=== PATIENT | female | born 1960 | race African-American/Black ===

== ENCOUNTER 2016-08-16 19:31 | Emergency (ER) | payer SELFPAY ==
[~2016-08-16] VITALS: Ht 152.4 cm; Wt 136.1 kg
[2016-08-16 19:53] VITALS: BP 195/106
[2016-08-16] MEDS ORDERED: FLUT9.9S NS (20:08)
[2016-08-16] MEDS ORDERED: SULF1TAB24 PO (20:08)
--- NOTE | 2016-08-16 20:08 | PHYS DOC ---
Past Medical History Past Medical History: No Pertinent History Past Surgical History: No Surgical History Additional Information: nonsmoker Alcohol Use: None Drug Use: None Adult General Chief Complaint Chief Complaint: Congestion HPI HPI Patient is a 55 year old female who presents with subjective fever and nasal congestion for 3 weeks. She reports frontal headache. She denies sore throat or cough. Upon arrival to the emergency department, her blood pressure is significantly elevated. She denies history of hypertension. She has been taking Benadryl and [id number] decongestants to help with her nasal congestion. She denies any chest pain or shortness of breath. [place] [facility] [place] Systems Review of Systems Constitutional: Reports subjective fever. Eyes: Denies change in visual acuity, redness, or eye pain. [] HENT: Denies ear pain or sore throat. Reports nasal congestion. Respiratory: Denies cough or shortness of breath. [] Cardiovascular: Denies chest pain, palpitations or edema. [] GI: Denies abdominal pain, nausea, vomiting, bloody stools or diarrhea. [] : Denies dysuria, hematuria or urinary frequency. [] Musculoskeletal: Denies back pain or joint pain. [] Integument: Denies rash or skin lesions. [] Neurologic: Denies focal weakness or sensory changes. Reports frontal headache. Endocrine: Denies polyuria or polydipsia. [] Psych: Denies anxiety or depression. [] All systems reviewed and negative unless otherwise stated in the HPI. Allergies Allergies Allergies Coded Allergies Type Severity Reaction Last Updated Verified No Known Drug Allergies 07/22/15 No Physical Exam Physical Exam Constitutional: Well developed, well nourished, no acute distress, non-toxic appearance. [] HENT: Normocephalic, atraumatic, bilateral external ears normal, oropharynx moist, no oral exudates, nose normal. Bilateral TMs without erythema or bulging. There is no posterior pharyngeal erythema or tonsillar edema. Bilateral nasal turbinates are significantly swollen and erythematous with purulent drainage. Eyes: PERRLA, EOMI, conjunctiva normal, no discharge. [] Neck: Normal range of motion, no tenderness, supple, no stridor. [] Cardiovascular: Heart rate regular rhythm, no murmur [] Lungs & Thorax: Bilateral breath sounds clear to auscultation without wheezes, rales, or rhonchi. Skin: Warm, dry, no erythema, no rash. [] Neurologic: Alert and oriented X 3, normal motor function, normal sensory function, no focal deficits noted. [] Psychologic: Affect normal, judgement normal, mood normal. [] Current Patient Data Vital Signs Vital Signs Date Time Temp Pulse Resp B/P Pulse Ox O2 Delivery O2 Flow Rate FiO2 08/16/16 19:53 195/106 08/16/16 19:41 98.7 97 18 95 Room Air 98.7 EKG EKG [] Radiology/Procedures Radiology/Procedures [] Course & Med Decision Making Course & Med Decision Making Pertinent Labs and Imaging studies reviewed. (See chart for details) Patient presents with nasal congestion for 3 weeks. On exam, she appears to have a sinus infection. She has been taking [id number] decongestants to help with her congestion. This is likely the cause of her elevated blood pressure in the emergency department today. She does not have any chest pain or shortness of breath. There are no neurologic deficits on exam. Patient is discharged home with prescriptions for Flonase and Bactrim for her sinus infection. She is instructed to discontinue use of nasal decongestants. She is instructed to follow-up with her primary care provider in the next 2-3 days. Strict return precautions were discussed. She verbalizes understanding and agrees with plan. Nishant Disclaimer Nishant Disclaimer This electronic medical record was generated, in whole or in part, using a voice recognition dictation system. Departure Departure Impression: Primary Impression: Sinusitis Additional Impression: Elevated blood pressure reading Disposition: 01 HOME, SELF-CARE Condition: STABLE Referrals: NO PCP (PCP) Patient Instructions: Managing Your High Blood Pressure, Sinusitis, Easy-to- Read Additional Instructions: Please complete all the prescribed antibiotics for your sinus infection. Please use the prescribed nasal spray on a daily basis. Please follow-up with your primary care doctor within the next 2-3 days for recheck of your blood pressure. Return to the emergency department if you have chest pain, shortness of breath, weakness or numbness on part of your body, difficulty talking, confusion, or other new or concerning symptoms. Scripts Fluticasone Propionate (Flonase Allergy Relief)9.9 Ml [place].susp2 Sprays NS DAILY #1 BOTTLE Prov:VIET NATARAJAN 08/16/16 Sulfamethoxazole/Trimethoprim (Bactrim Ds Tablet)1 Each Tablet1 Tab PO BID #14 TAB Prov:VIET NATARAJAN 08/16/16 Problem Qualifiers Primary Impression: Sinusitis Sinusitis location: unspecified location Chronicity: acute Recurrence: not specified as recurrent Qualified Code: J01.90 - Acute sinusitis, unspecified VIET NATARAJAN Aug 16, 2016 20:08
== END 2016-08-16 20:15 | disposition home or self-care (01) ==
LOC: ER 19:31
DX: J01.90 Acute sinusitis, unspecified (principal); R03.0 Elevated blood-pressure reading, without diagnosis of hypertension
CPT/HCPCS: 99283